=== PATIENT | female | born 1945 | race Caucasian/White ===

== ENCOUNTER 2018-08-09 08:29 | Emergency (ER) | payer MEDICARE ==
[2018-08-09] MEDS ORDERED: IBUPROFEN 800 MG TABLET PO STA (09:11)
[2018-08-09] MEDS ORDERED: SODIUM CHLORIDE 0.9% 1,000 ML IV ONE (09:11)
[2018-08-09] MEDS ORDERED: ONDANSETRON 4 MG/2 ML VIAL IVP STA (09:11)
--- NOTE | 2018-08-09 09:12 | ED Physician Documentation ---
History of Present Illness - Stated complaint Stated Complaint: VOMITING/WEAKNESS - Chief complaint Chief Complaint: Neuro - History obtained from History obtained from: Patient - History of Present Illness Timing: How many days ago (5) Associated symptoms: Cough, nausea, generalized weakness and myalgias. - Additonal information Additional information: The patient is a 73-year-old female who presents with generalized weakness, myalgias, cough, nausea with occasional vomiting. Her symptoms started 6 days ago with cough, and have progressed since that time. She has had low-grade fever. She denies headache, diarrhea, or dysuria. Her has been sick with similar symptoms and was diagnosed with influenza 2 days ago. He was started on Tamiflu and is feeling somewhat improved since that time. Review of Systems Constitutional: reports: Fever, Myalgias, Fatigue Eyes: denies: Irritation Ears: denies: Tinnitus/ringing Nose: denies: Congestion Throat: denies: Sore throat Cardiac: denies: Chest pain / pressure Respiratory: reports: Cough. denies: Dyspnea GI: reports: Nausea, Vomiting. denies: Abdominal Pain, Diarrhea : denies: Dysuria Skin: denies: Rash Musculoskeletal: denies: Extremity swelling Neurologic: reports: Generalized weakness. denies: Focal weakness, Numbness, Headache PD PAST MEDICAL HISTORY - Past Medical History Cardiovascular: Hypertension, High cholesterol Respiratory: None Neuro: None Endocrine/Autoimmune: None GI: GERD DIRECTOR [employer] CHAIN: None : None HEENT: None Psych: None Musculoskeletal: None Derm: None Other Past Medical History: Breast CA, - Past Surgical History Ortho: Knee replacement /DIRECTOR [employer] CH[employer]: Hysterectomy, Oophrectomy, Mastectomy - Present Medications Home Medications: Ambulatory Orders Medication Instructions Recorded Confirmed Atenolol 100 mg PO 08/09/18 Levothyroxine [Synthroid] 125 mcg PO QDAC 08/09/18 08/09/18 Omeprazole 20 mg PO 08/09/18 Pravastatin [Pravachol] 10 mg PO 08/09/18 Promethazine [Phenergan] 25 mg PO Q6H PRN #10 tab 08/09/18 amLODIPine [Norvasc] 08/09/18 08/09/18 - Allergies Allergies/Adverse Reactions: Allergies Allergy/AdvReac Type Severity Reaction Status Date / Time benazepril Allergy Unknown Verified 08/09/18 08:49 gabapentin Allergy Unknown Verified 08/09/18 08:49 morphine Allergy Unknown Verified 08/09/18 08:49 sulfamethoxazole Allergy Unknown Verified 08/09/18 08:49 [From Bactrim] trimethoprim [From Bactrim] Allergy Unknown Verified 08/09/18 08:49 - Social History Does the pt smoke?: No Smoking Status: Never smoker Does the pt drink ETOH?: No Does the pt have substance abuse?: No - Immunizations Immunizations are current?: Yes PD ED PE NORMAL - Vitals Vital signs reviewed: Yes (Borderline systolic hypertension initially.) - General General: Alert and oriented X 3, Well developed/nourished - HEENT HEENT: Atraumatic, EOMI, Pharynx benign, Other (Dry buccal mucosa.) - Neck Neck: Supple, no meningeal sign, No adenopathy, No JVD - Cardiac Cardiac: RRR, No murmur - Respiratory Respiratory: No respiratory distress, Clear bilaterally - Abdomen Abdomen: Soft, Non tender - Back Back: No CVA TTP - Derm Derm: No rash - Extremities Extremities: No edema, No calf tenderness / cord - Neuro Neuro: Alert and oriented X 3, No motor deficit, No sensory deficit Results - Vitals Vitals: Vital Signs - 24 hr 08/09/18 08/09/18 08/09/18 08:30 08:50 10:45 Temperature 36.3 C L Heart Rate 60 55 L 51 L Respiratory 16 11 L 16 Rate Blood Pressure 146/71 H 164/79 H 150/75 H O2 Saturation 97 97 95 Oxygen O2 Source Room air - Labs Labs: Laboratory Tests 08/09/18 08:54 Influenza A (Rapid) Negative Influenza B (Rapid) Negative PD MEDICAL DECISION MAKING - ED course Complexity details: reviewed results, re-evaluated patient, considered differential, d/w patient, d/w family ED course: The patient's presentation is most consistent with acute viral syndrome. Even though her influenza swab is negative, it is likely that her symptoms are influenza related, given that her , who has had similar symptoms, was diagnosed with influenza with a positive swab 2 days ago. Her presentation does not suggest meningitis, peritonsillar abscess, or pneumonia. She does not appear septic. Treatment in the emergency department included administration of normal saline 1 L IV, Zofran 4 mg IV, and ibuprofen 800 mg orally. She feels subjectively much improved after the above treatment. I discussed with her that Tamiflu is not clinically indicated this long after the onset of her symptoms, even if her symptoms are due to influenza. I discussed with her and her the expected course of illness, symptomatic treatment and outpatient follow-up, as well as potentially worrisome signs or symptoms that should prompt reevaluation in the emergency department. Departure - Departure Disposition: 01 Home, Self Care Clinical Impression: Acute viral syndrome, Dehydration Condition: Stable Instructions: ED Dehydration, ED Viral Syndrome Follow-Up: MELVINA GRAJEDA MD [Physician No Access] - Prescriptions: Promethazine [Phenergan] 25 mg PO Q6H PRN #10 tab PRN Reason: Nausea / Vomiting Comments: Drink plenty of fluids. You can use ibuprofen, up to 800 mg 3 times daily if needed for fever or discomfort. You can use Phenergan as prescribed if needed for nausea. Follow-up with your primary physician within 2 weeks if not completely resolved. Return to the emergency department if you develop increasing difficulty breathing, persistent vomiting, recurrent dehydration, or otherwise worsening symptoms. Discharge Date/Time: 08/09/18 10:46
[2018-08-09 10:46] VITALS: BP 150/75
== END 2018-08-09 10:46 | disposition home or self-care (01) ==
LOC: ED 08:29
DX: B34.9 Viral infection, unspecified (principal); E86.0 Dehydration; I10 Essential (primary) hypertension; E78.00 Pure hypercholesterolemia, unspecified; Z96.659 Presence of unspecified artificial knee joint; Z85.3 Personal history of malignant neoplasm of breast; Z90.10 Acquired absence of unspecified breast and nipple
CPT/HCPCS: 87275; 87276; 96361; 96374; 99283; A9270

== ENCOUNTER 2023-06-07 10:11 | Outpatient (CLI) | payer MEDICARE | END 2023-06-07 10:12 | disposition home or self-care (01) | LOC: LAB.S 10:11 | PROVIDERS: ATTEND Registered Nurse Obstetric, High-Risk | DX: C57.00 Malignant neoplasm of unspecified fallopian tube (principal) | CPT/HCPCS: 36415; 86304 ==

== ENCOUNTER 2024-01-02 08:00 | Outpatient (CLI) | payer MEDICARE | END 2024-01-02 23:59 | disposition home or self-care (01) | LOC: LAB.S 08:00 | PROVIDERS: ATTEND Registered Nurse | DX: L98.9 Disorder of the skin and subcutaneous tissue, unspecified (principal) | CPT/HCPCS: 87255 ==